=== PATIENT | female | born 1990 | race Caucasian/White ===

== ENCOUNTER 2016-08-01 13:45 | Emergency (ER) | payer BC, MEDICAID ==
[~2016-08-01] VITALS: Wt 90.0 kg
[~2016-08-01 13:45] MED LIST: ALBU8.5H5 IH; PRED20TA PO; TRAM50TA2 PO
--- NOTE | 2016-08-01 14:57 | EN ---
Date/Time of Note Date/Time of Note DATE: 08/01/16 TIME: 14:56 ER Progress Note Patient was seen and examined in E. Patient has hx of asthma, complains of SOB , difficulty breathing, chest tightedness and wheezing x 3 weeks, works in cooler at work. No relief with albuterol or breathing treatment at home. Will be sent to ED2 for breathing treatment and further evaluation. DMITRI ESPARZA PA-C Aug 01, 2016 14:57
[2016-08-01] MEDS ORDERED: DEXAMETHASONE 10 MG/ML 1 ML INJ IM ONE (15:30)
[2016-08-01] MEDS ORDERED: IPRATROPIUM (NEB) 0.5 MG/2.5 ML AMP HHN ONE (15:30)
[2016-08-01] MEDS ORDERED: ALBUTEROL 0.083% (NEB) 2.5 MG/3 ML AMP HHN ONE (15:30)
--- NOTE | 2016-08-01 16:10 | RADRPT ---
PROCEDURE: XR Chest. CLINICAL INDICATION: chest pain, asthma TECHNIQUE: Single frontal view of the chest was obtained COMPARISON: 09/30/09 FINDINGS: The heart and mediastinum are within normal limits. The lungs are clear. There is no pleural effusion or pneumothorax. RPTAT: AA IMPRESSION: No acute disease. .Jake Zayas MD, MD Date Time Electronically viewed and signed by .Jake Zayas MD, on 08/01/2016 16:09 .S/
[2016-08-01] MEDS ORDERED: ALBU8.5H3 INH (16:31)
[2016-08-01] MEDS ORDERED: PRED20TA PO (16:31)
[2016-08-01 17:16] VITALS: BP 122/72; PULSE 85; RESP 20; TEMP 98.3
--- NOTE | 2016-08-01 17:46 | ERD ---
DATE OF SERVICE: 08/01/2016 HISTORY OF PRESENT ILLNESS: The patient is a 26-year-old female complaining of coughing and wheezin g with shortness of breath for a few days. Patient states that she has a long history of asthma. S he has been using Albuterol with no alleviation of symptoms. She has had no fever. She has had a p roductive cough. She feels that her symptoms are intensified when she is at work. She is working i n the freezer. MEDICAL HISTORY: Asthma. ALLERGIES TO MEDICATIONS: DENIES. SURGICAL HISTORY: Ectopic . SOCIAL HISTORY: Denies. REVIEW OF SYSTEMS: A 12-point review of systems was done. Refer to HPI for positives, all other sy stems negative. PHYSICAL EXAMINATION: VITAL SIGNS: Temperature is 98.8, pulse 102, blood pressure is 148/82, respiratory rate 26, O2 sat 96% on room air. Pain intensity is 6/10. GENERAL: The patient is well-appearing, well-nourished, no acute distress. LUNGS: The patient has diffuse wheezing heard on auscultation with tight breath sounds. No focal r honchi, no stridor, no trismus or drooling. No tripoding. HEENT: Atraumatic. Conjunctivae are pink. Pupils equal, round, and reactive to light. There is no s cleral icterus. Tympanic membranes clear bilaterally. Oropharynx clear. No nystagmus or photophobia . NECK: C-spine is soft and supple. There is no meningismus. There is no cervical lymphadenopathy. No JVD. No bruits. No goiter. HEART: Regular rate and rhythm. No murmurs, clicks, rubs or gallops. No S3 or S4. SKIN: There is no apparent rash or petechia. The skin is warm and dry. EMERGENCY ROOM COURSE: The patient had a breathing treatment in the ER, continues breathing. The p atient's symptoms improved after breathing treatment, she also had a 1-view chest x-ray in the ER wh ich showed no acute disease. The patient was given IM injection of Decadron. DIAGNOSIS: Asthma exacerbation. MEDICAL DECISION MAKING: I have low suspicion for pneumonia, low suspicion for respiratory distress or hypoxia. Low suspicion for PE, low suspicion for pneumothorax. The patient's exams are within normal limits. Vital signs are stable and patient's symptoms dramatically improved with breathing t reatment. DISCHARGE: The patient is discharged stable. Patient given prescription for prednisone and albuter ol and told to follow up with primary care within 1 to 2 days for reevaluation. Patient was told if symptoms progress or worsen to return to the ER. All other questions answered at time of discharge . Discharge summary given at the time of departure. Patient understood and complied with plan. Dictated By: MACEY ROUSE for RACHAEL BLEVINS/TANA Conf#: [id number] DID#: [id number]
== END 2016-08-01 17:17 | disposition home or self-care (01) ==
LOC: FTE 13:45
DX: J45.901 Unspecified asthma with (acute) exacerbation (principal)
CPT/HCPCS: 71010; 94644; 96372; 99284; J1100

== ENCOUNTER 2017-09-23 16:59 | Emergency (ER) | END 2017-09-23 21:04 | disposition home or self-care (01) ==

== ENCOUNTER 2018-06-02 13:02 | Outpatient (CLI) | END 2018-06-02 16:06 | disposition home or self-care (01) ==

== ENCOUNTER 2018-06-04 11:31 | Outpatient (CLI) | END 2018-06-04 14:20 | disposition home or self-care (01) ==

== ENCOUNTER 2018-06-21 13:27 | Outpatient (CLI) | END 2018-06-21 16:45 | disposition home or self-care (01) ==

== ENCOUNTER 2018-07-14 11:49 | Outpatient (CLI) | payer OTHER ==
[~2018-07-14] VITALS: Ht 162.6 cm; Wt 115.0 kg
[~2018-07-14 11:49] MED LIST changes: +HYDR250V5 IM; -PRED20TA PO; +PREN1TAB71 PO; -TRAM50TA2 PO
[2018-07-14 12:47] VITALS: BP 109/68; PULSE 95; RESP 18; Ht 162.6 cm; Wt 115.0 kg
--- NOTE | 2018-07-14 14:59 | TRIAGE ---
OB Triage Datetime Report Generated by CPN: 07/14/2018 14:59 Datetime: 07/14/2018 12:42 Assessment Type: Triage Maternal Assessment Level of Consciousness: Fully Conscious DTR's/Clonus: DTRs 2+; No Clonus Headache: Occipital Blurred Vision: No Respiratory Effort: Unlabored; Regular Rhythm; Equal Expansion Breath Sounds, Left: Clear and Equal Breath Sounds, Right: Clear and Equal Nausea/Vomiting: Denies RUQ Epigastric Pain: Denies Lower Extremities Edema: Bilateral Lower Extremities Degree: 1+ Upper Extremities Edema: None Degree: None Facial Edema: None Fall Risk Assessment History of Falling: (0) No Secondary Diagnosis: (0) No Ambulatory Aid: (0) Bedrest/Nurse Assist IV Therapy: (0) No Gait: (0) Normal/Bedrest/Immobile Mental Status: (0) Oriented to Own Ability Fall Score: 0 Fall Risk Score Definition: No Risk: No action required Datetime: 07/14/2018 12:40 Labor Evaluation Monitor Mode: External Heart Rate Monitor Mode: External US Datetime: 07/14/2018 12:29 Time of Arrival: 07/14/2018 11:46 EGA: 38.2 Arrived By: Ambulatory Chief Complaint: PT SENT FROM CLINIC FOR EVAL. OF HBP Movement: Present Contractions: Denies/Absent Rupture of Membranes: Denies Vaginal Bleeding: None Vaginal Discharge: Denies Recent Sexual Intercouse: Denies Abdominal Trauma: Not Applicable Patient Complaints: None Time Provider Notified: 07/14/2018 14:30 Provider Notified: ESHAGHIAN Initial Plan: PIH PANEL/BPP/EFW Datetime: 06/21/2018 13:53 EGA: 35.0 Datetime: 06/21/2018 13:52 Fall Score: 0 Fall Risk Score Definition: No Risk: No action required Datetime: 06/04/2018 11:40 Fall Score: 0 Fall Risk Score Definition: No Risk: No action required Datetime: 06/02/2018 13:13 Fall Score: 0 Fall Risk Score Definition: No Risk: No action required Datetime: 06/02/2018 13:12 EGA: 32.4
--- NOTE | 2018-07-14 17:11 | PN ---
Triage Information Date/Time Reason for visit: Further management of elevated blood pressure in office Weeks of Gestation 38 weeks and 2 days /Para Diabetes: none Hypertention: none Additional information 28-year-old with single intrauterine at 38 weeks and 2 days with a TAMMY of 07/26/2018 seen in her primary OB office today and elevated blood pressure was noted. Patient was sent to triage for further management. She states good movement. She denies nausea, vomiting, shortness of breath, chest pain, headache, visual changes, vaginal bleeding or LOF. Objective Vital Signs Date Temp Pulse Resp B/P (MAP) Pulse Ox O2 O2 Flow FiO2 Time Delivery Rate 07/14/18 98.2 95 18 109/68 Room Air 12:47 (82) Heart Rate: 140's Contractions: >10 Minutes Apart Results/Medications Result Diagram: 07/14/18 1336 07/14/18 1336 Results 24 hrs Laboratory Tests Test 07/14/18 12:10 07/14/18 13:36 Urine Color YELLOW Urine Clarity SLIGHTLY CLOUDY A Urine pH 7.0 Urine Specific [place] 1.012 Urine Ketones NEGATIVE Urine Nitrite NEGATIVE Urine Bilirubin NEGATIVE Urine Urobilinogen NEGATIVE Urine Leukocyte Esterase 3+ H Urine Microscopic RBC 4 Urine Microscopic WBC 1 Urine Squamous Epithelial Cells FEW Urine Bacteria FEW A Urine Mucus FEW A Urine Hemoglobin NEGATIVE Urine Glucose NEGATIVE Urine Total Protein NEGATIVE White Blood Count 7.6 Red Blood Count 4.25 Hemoglobin 11.2 L Hematocrit 34.1 L Mean Corpuscular Volume 80.2 L Mean Corpuscular Hemoglobin 26.4 L Mean Corpuscular Hemoglobin Concent 32.8 Red Cell Distribution Width 13.6 Platelet Count 302 Mean Platelet Volume 9.9 Immature Granulocytes % 0.400 Neutrophils % 67.8 Lymphocytes % 22.5 Monocytes % 7.6 Eosinophils % 1.2 Basophils % 0.5 Nucleated Red Blood Cells % 0.0 Immature Granulocytes # 0.030 Neutrophils # 5.2 Lymphocytes # 1.7 Monocytes # 0.6 Eosinophils # 0.1 Basophils # 0.0 Nucleated Red Blood Cells # 0.0 Prothrombin Time 11.7 L Prothrombin Time Ratio 0.9 INR International Normalized Ratio 0.85 Activated Partial Thromboplast Time 24.7 Fibrinogen 597.0 #H Sodium Level 135 Potassium Level 4.1 Chloride Level 107 Carbon Dioxide Level 20 L Anion Gap 8 Blood Urea Nitrogen 7 Creatinine 0.47 Est Glomerular Filtrat Rate mL/min > 60 Glucose Level 136 Uric Acid 4.3 Calcium Level 9.3 Total Bilirubin 0.1 L Direct Bilirubin 0.00 Indirect Bilirubin 0.1 Aspartate Amino Transf (AST/SGOT) 26 Alanine Aminotransferase (ALT/SGPT) 25 Alkaline Phosphatase 185 H Total Protein 6.4 Albumin 3.4 Globulin 3.00 Albumin/Globulin Ratio 1.13 Imaging Results FINDINGS: Single intrauterine gestation. There is a cephalic presentation. Measurements were made in order to determine age. The results are as follows: BPD = 36 weeks 5 day(s) HC = 36 weeks 4 day(s) AC = 39 weeks 6 day(s) FL = 36 weeks 0 day(s) [place] (cm) = not measured Heart rate = 142 beats per minute The placenta is anterior. There is no evidence for an abruption or placenta previa. Ovaries are not visualized. IMPRESSION: Single intrauterine gestation of approximately 37 weeks 2 days by ultrasound criteria. [facility] estimated weight = 3439 g; 63 percentile for gestational age of 38 weeks 2 days. RPTAT: AADD .Ed Parrish MD, MD Date Time Electronically viewed and signed by .Ed Parrish MD, MD on 07/14/2018 12:38 Disposition: Discharge Assessment/Plan 28-year-old with single intrauterine at 38 weeks and 2 days had elevated blood pressure in office during visit. She was referred to triage for further evaluation. All blood pressure in triage were within normal limits, highest blood pressure was 109/68. CBC, C MP, urinalysis performed which all were within normal limits. heart rate category 1. FHR: No sign of metabolic acidosis- Category I. Discharged home in stable condition with follow-up with her primary OB in 1-2 days, strongly recommend to return to triage with any concern. Patient was discharged home in stable condition with the appropriate discharge instructions provided. ARCHIE BELTRAN Jul 14, 2018 17:11
== END 2018-07-14 15:15 | disposition home or self-care (01) ==
LOC: L-D 11:49 → OBT 11:49
PROVIDERS: ATTEND Obstetrics & Gynecology
DX: O13.3 Gestational [pregnancy-induced] hypertension without significant proteinuria, third trimester (principal); Z3A.38 38 weeks gestation of pregnancy
CPT/HCPCS: 76815; 76818; 80053; 81001; 84560; 85025; 85384; 85610; 85730; G0463

== ENCOUNTER 2018-07-19 08:00 | Inpatient (IN) | payer OTHER ==
[~2018-07-19] VITALS: Ht 162.6 cm; Wt 115.7 kg
[~2018-07-19 08:00] MED LIST changes: -ALBU8.5H5 IH; +EPHEDrine SULFATE 50 MG/5 ML SYG ONE; -HYDR250V5 IM; -PREN1TAB71 PO
[2018-07-19 08:39] VITALS: Ht 162.6 cm; Wt 115.7 kg
[2018-07-19] MEDS ORDERED: BUTORPHANOL 2 MG INJ IV PRN (09:00)
[2018-07-19] MEDS ORDERED: OXYTOCIN 30 UNITS/LR 500 ML IV SCH ×3 (09:00→16:10)
[2018-07-19] MEDS ORDERED: METHYLERGONOVINE 0.2 MG INJ IM PRN ×2 (09:00→16:30)
[2018-07-19] MEDS ORDERED: LIDOCAINE 1% (MPF) 30 ML INJ INJ PRN (09:00)
[2018-07-19] MEDS ORDERED: IBUPROFEN 600 MG TAB PO PRN (09:00)
[2018-07-19] MEDS ORDERED: CARBOPROST 250 MCG INJ IM PRN ×2 (09:00→16:30)
[2018-07-19] MEDS ORDERED: OXYCODONE/ASPIRIN (4.88/325) TAB PO PRN (09:00)
[2018-07-19] MEDS ORDERED: MISOPROSTOL 200 MCG TAB PR PRN ×2 (09:00→16:30)
[2018-07-19] MEDS ORDERED: OXYTOCIN 30 UNITS/LR 500 ML IV PRN ×2 (09:00→16:30)
--- NOTE | 2018-07-19 11:25 | PREOPHP ---
DATE OF ADMISSION: 07/19/2018 HISTORY OF PRESENT ILLNESS: Ms. Tiana Marroquin is a 28-year-old 7, para 1, EDC 07/26/2018, was admitted today for elective social induction. However, heart tracing currently with a cat egory 2 tracing/occasional variable decelerations. After explaining the risks, benefits and alternat marilu, the patient agreed for an elective delivery. PAST MEDICAL HISTORY: Obese, asthma. MEDICATIONS: 1. vitamins. 2. Albuterol inhaler as needed. PAST SURGICAL HISTORY: None. OBSTETRIC HISTORY: x1 vaginal delivery at approximately 34 weeks gestational age, 3 termination of p regnancy, x2 missed AB, x1 ectopic . GYNECOLOGIC HISTORY: 12, regular 3 to 4 days. Denies any sexually transmitted disease. Sexually ac tive with 1 partner. SOCIAL HISTORY: Denies any smoking, drugs or alcohol. FAMILY HISTORY: None. REVIEW OF SYSTEMS: All within normal except history of present illness. PHYSICAL EXAMINATION: HEENT: Within normal. LUNGS: CTA bilateral. CARDIOVASCULAR: S1, S2, regular rhythm. ABDOMEN: Gravid, nontender. Negative CVA bilateral. EXTREMITIES: Negative edema. No calf tenderness. PELVIC: Vaginal exam 150, -3 posterior. heart tracing category 2 in the 140s, [place]: no contr actions. ASSESSMENT: Intrauterine at 39 weeks gestational age, category 2 tracing remote from [facility], [place]. History of positive amphetamines. PLAN: For intrauterine resuscitation, consent for a primary . Risks, benefits and alternat marilu explained. All questions were answered. Dictated By: SHAHNAZ RIVERA/TANA Conf#: [id number] DID#: [id number] CC: SHAHNAZ MCRAE MD;*EndCC*
[2018-07-19] MEDS ORDERED: CEFAZOLIN 2 GM/50 ML (PMX) 50 ML IVPB SCH (12:00)
[2018-07-19] MEDS: LACTATED RINGER'S 1,000 ML IV SCH ×2 (13:06→16:40)
[2018-07-19] MEDS ORDERED: OXYTOCIN 30 UNITS/LR 500 ML IV ONE ×2 (15:00→16:02)
[2018-07-19] MEDS ORDERED: ONDANSETRON 4 MG INJ ONE (15:01)
[2018-07-19] MEDS ORDERED: KETOROLAC 30 MG INJ ONE (15:01)
[2018-07-19] MEDS ORDERED: morphine SULFATE/PF (10 MG/10 ML) INJ ONE (15:01)
[2018-07-19] MEDS ORDERED: METOCLOPRAMIDE 10 MG INJ ONE (15:01)
--- NOTE | 2018-07-19 16:10 | OPPN ---
Date/Time of Note Date/Time of Note DATE: 07/19/18 TIME: 16:07 Operative Report Planned Procedure Procedure date Jul 19, 2018 Procedure(s) primary low transverse CD Performed by see signature line Ceramics Test Engineer: AJ KHALIL M.D. 2nd Ceramics Test Engineer none Pre-procedure diagnosis Intrauterine at 39 weeks gestational age, category 2 tracing remote from delivery. History of positive amphetamines. [id number] Anesthesia Type: [id number] spinal Post-Procedure Post-procedure diagnosis same Findings a viable male 7/9. weight 8lb 13 oz. normal uterus and ovaries. right fallopian tubes not visualize. normal left fallopian tube Estimated Blood Loss: 500 - 600 mls Specimen(s) none Grafts/Implant(s) none Complication(s) none SHAHNAZ MCRAE MD Jul 19, 2018 16:10
[2018-07-19] MEDS ORDERED: LANOLIN HPA 1 PKT TOP PRN (16:30)
[2018-07-19] MEDS ORDERED: NALOXONE (0.4 MG/ML) INJ IV PRN (16:30)
[2018-07-19] MEDS ORDERED: NACL 0.9% 3 ML SYG IV SCH (16:30)
[2018-07-19] MEDS ORDERED: morphine 2 MG INJ IV PRN ×3 (16:30)
[2018-07-19] MEDS ORDERED: morphine (1 MG/ML) 10ML SYRINGE IV PRN ×3 (16:30)
[2018-07-19] MEDS ORDERED: KETOROLAC 30 MG INJ IV PRN (16:30)
[2018-07-19] MEDS ORDERED: DIPHENHYDRAMINE 50 MG INJ IV PRN ×2 (16:30)
[2018-07-19] MEDS ORDERED: ONDANSETRON 4 MG INJ IV PRN ×2 (16:30)
[2018-07-19] MEDS: IBUPROFEN 600 MG TAB PO SCH (18:00)
[2018-07-19 18:40] VITALS: BP 118/59; PULSE 91; RESP 18
[2018-07-19 19:45] VITALS: BP 113/66; PULSE 99; RESP 21
[2018-07-19] MEDS: CEFAZOLIN 2 GM/50 ML (PMX) 50 ML IVPB SCH (19:46)
[2018-07-19] MEDS: SENNA/DOCUSATE NA (8.6MG/50MG) TAB PO SCH (21:00)
[2018-07-20] MEDS: LACTATED RINGER'S 1,000 ML IV SCH ×2 (00:40→08:52)
[2018-07-20 01:00] VITALS: BP 120/68; PULSE 103; RESP 20
[2018-07-20] MEDS: CEFAZOLIN 2 GM/50 ML (PMX) 50 ML IVPB SCH ×2 (03:26→09:50)
[2018-07-20] MEDS: KETOROLAC 30 MG INJ IV PRN ×2 (03:28→08:07)
[2018-07-20 03:51] VITALS: BP 108/55; PULSE 94; RESP 18
--- NOTE | 2018-07-20 04:31 | NUR ---
EOSS: STABLE CONDITION. FUNDUS FORM, LOCHIA MINIMAL. ELIA CARE DONE. VITAL SIGNS WITHIN NORMAL LIMITS. WILL CONTINUE TO MONITOR.
[2018-07-20] MEDS: IBUPROFEN 600 MG TAB PO SCH ×5 (05:51→23:48)
[2018-07-20 08:10] VITALS: BP 107/59; PULSE 98; RESP 18
[2018-07-20 12:00] VITALS: BP 100/60; PULSE 96; RESP 18
--- NOTE | 2018-07-20 12:30 | OPR ---
DATE OF OPERATION: 07/19/2018 PRIMARY DIAGNOSES: Intrauterine at 39 weeks gestational age, category 2 tracing remote fro m delivery. POSTOPERATIVE DIAGNOSES: Intrauterine at 39 weeks gestational age, category 2 tracing russell te from delivery. PROCEDURE: Primary low transverse delivery. SURGEON: Tu Ibarra MD FUNDS TRANSFER CLERK: Panchito Lux MD ANESTHESIA: Spinal. COMPLICATIONS: None. ESTIMATED BLOOD LOSS: 500 mL. FINDINGS: A viable male, Apgars 7 and 9 respectively at 1 and 5 minutes, weight 8 pounds and 13 ounc es, x1 cord around the neck. The right fallopian tube is not identified. Normal right and left ovar ies. Normal left fallopian tube. Normal uterus. DESCRIPTION OF PROCEDURE: After explaining the risks, benefits and alternatives, the patient and con sent signed in chart, the patient was taken to the operating room where spinal anesthesia was found t o be adequate. She was then prepared and draped in normal sterile fashion in dorsal position with a leftward tilt. A Pfannenstiel skin incision was then made with a scalpel and carried to the underlyi ng fascia. The fascia was incised in the midline. Incision was extended laterally with Macdonald scissor s. The superior aspect of the fascial incision was grasped with curved clamps, elevated and the unde rlying rectus muscles dissected off bluntly. Attention was then turned to the inferior aspect of the incision which in similar fashion was grasped, tented up with curved clamps and the rectus muscles d issected off bluntly. The rectus muscles were in midline, peritoneum identified, tented up and sharply with Metzenbaum scissors. The peritoneal incision was extended superiorly with good vis ualization of bladder. The bladder blade was then inserted and the vesicouterine peritoneum identifi ed, grasped with pickups and sharply with Metzenbaum scissors. This incision was extended laterally and a bladder flap created digitally. The bladder blade was then reinserted and lower segment incise d in transverse fashion with a scalpel. The uterine incision was extended laterally. The bladder bl elijah was removed and the infant's head delivered atraumatically. The nose and mouth were suctioned, c ord clamped and cut. The infant was handed off to awaiting position. The placenta was then removed. The uterus was exteriorized and cleared of all clots and debris. The uterine incision was repaired with 1-0 chromic in a running locked fashion. A second layer of same suture was used for imbricatio n obtaining excellent hemostasis. The uterus was returned to the abdomen. The gutters were cleared of all clots. The peritoneum and rectus abdominis muscles were reapproximated with 3-0 Vicryl in int errupted fashion. The fascia was reapproximated with 0 Vicryl in a running fashion. The subcutaneou s tissue was reapproximated with 2-0 plain gut in a running fashion. The skin was closed with absorb able andreia. The patient tolerated procedure well. All counts were correct. The patient was taken to recovery room in stable condition. Dictated By: TU RIVERA/TANA Conf#: [id number] DID#: [id number]
[2018-07-20] MEDS: SENNA/DOCUSATE NA (8.6MG/50MG) TAB PO SCH ×2 (14:35→20:21)
[2018-07-20] MEDS: OXYCODONE/ACETAMINOPHEN (5/325) TAB PO PRN ×2 (14:36→20:20)
[2018-07-20 16:00] VITALS: BP 109/61; PULSE 95; RESP 18
--- NOTE | 2018-07-20 17:22 | NUR ---
EOSS: Vital signs stable, assisted out of bed and encouraged to ambulate around the room. Voided x1 without difficulty, fundus firm, lochia small. Bonding with baby.
[2018-07-20 20:00] VITALS: BP 107/67; PULSE 90; RESP 18
--- NOTE | 2018-07-20 20:47 | QN ---
Documentation Comment progress note pod 1 patient seen and evaluated no complaints vs stable afebrile ab dressing clean/dry no distention extremity no edema no calf tenderness a/ sp cd pod 1 stable afebrile p/ iron supplement encourage ambulation SHAHNAZ MCRAE MD Jul 20, 2018 20:47
[2018-07-20] MEDS: FERROUS SULFATE (EC) 325 MG TAB PO SCH (21:24)
[2018-07-21] MEDS: OXYCODONE/ACETAMINOPHEN (5/325) TAB PO PRN ×4 (02:34→19:12)
[2018-07-21 04:00] VITALS: BP 109/65; PULSE 86; RESP 16
--- NOTE | 2018-07-21 05:30 | NUR ---
EOSS: PATIENT IN STABLE CONDITION. BONDING WELL WITH . FEEDING FORMULA, MOTHER'S REQUEST, VIA BOTTLE. AMBULATING WELL AND VOIDING WELL. PASSING GAS, DUE TO BM. FUNDUS FIRM AT LEVEL OF UMBILICUS, WITH SMALL AMOUNT OF LOCHIA. PATIENT IS AFEBRILE. FOB AT BEDSIDE.
[2018-07-21] MEDS: IBUPROFEN 600 MG TAB PO SCH ×4 (06:26→23:52)
[2018-07-21] MEDS: LACTATED RINGER'S 1,000 ML IV SCH ×4 (06:27→14:18)
[2018-07-21 08:30] VITALS: BP 85/49; PULSE 87; RESP 19
[2018-07-21] MEDS: SENNA/DOCUSATE NA (8.6MG/50MG) TAB PO SCH ×2 (08:38→20:26)
[2018-07-21] MEDS: FERROUS SULFATE (EC) 325 MG TAB PO SCH ×2 (08:38→20:26)
--- NOTE | 2018-07-21 12:10 | OPPN ---
Date/Time of Note Date/Time of Note DATE: 07/20/18 TIME: 12:08 A 28 year female s/p spinal duramorph pod #1 ia doing fine , no pain, itching, N/V, headache. no neural deficit. YASMANI DESIR MD Jul 21, 2018 12:10
[2018-07-21 15:22] VITALS: BP 129/73; PULSE 66; RESP 18
--- NOTE | 2018-07-21 17:19 | NUR ---
EOSS VSS, BONDING WELL WITH . INCISION AND STERI STRIPS CLEAN DRY INTACT
--- NOTE | 2018-07-21 17:53 | PN ---
Date/Time of Note Date/Time of Note DATE: 07/21/18 TIME: 17:52 OB Subjective Subjective Subjective POD#2 Patient is doing well. She denies nausea, vomiting, shortness of breath, chest pain, headache. She has been ambulating without difficulty, tolerating regular diet. Pain is well controlled on current medications OB Objective Objective Objective VS - Last 72 Hours, by Label Date Temp Pulse Resp B/P (MAP) Pulse Ox O2 O2 Flow FiO2 Time Delivery Rate 07/21/18 98.0 66 18 129/73 Room Air 15:22 (91) 07/21/18 98.2 87 19 85/49 (61) Room Air 08:30 07/21/18 97.4 86 16 109/65 Room Air 04:00 (80) 07/20/18 97.5 90 18 107/67 Room Air 20:00 (80) 07/20/18 98.8 95 18 109/61 Room Air 16:00 (77) 07/20/18 99.0 96 18 100/60 96 12:00 (73) 07/20/18 100.0 98 18 107/59 98 Room Air 08:10 (75) 07/20/18 99.1 94 18 108/55 95 Room Air 03:51 (72) 07/20/18 99.0 103 20 120/68 95 Room Air 01:00 (85) 07/19/18 97.9 99 21 113/66 96 Room Air 19:45 (82) 07/19/18 97.8 91 18 118/59 96 Room Air 18:40 (78) General: AAO X 3, comfortable, NAD, appropriate mood and affect. ABD: +BS. Soft, non-tender. Uterus 2 cm below umbilicus Incision: Clear, dry, intact. No erythema, drainage or induration. Flank: No CVA tenderness (B/L) LE: Mild edema. No clubbing, cyanosis, thigh or calf tenderness (B/L). Homans 'sign is negative OB Assessment/Plan Other plan: 28-year-old s/p delivery POD#2 - AF, VSS - Baby is doing well, at bed side. She is bonding well - Contraception methods with R/B/A/FR discussed - Continue care ARCHIE BELTRAN Jul 21, 2018 17:53
[2018-07-21] MEDS ORDERED: PROAIR HFA INHALER INH PRN (19:30)
[2018-07-21 20:00] VITALS: BP 131/88; PULSE 99; RESP 18
[2018-07-22] MEDS: LACTATED RINGER'S 1,000 ML IV SCH (00:40)
[2018-07-22 04:00] VITALS: BP 103/57; PULSE 88; RESP 16
[2018-07-22] MEDS: OXYCODONE/ACETAMINOPHEN (5/325) TAB PO PRN ×2 (04:34→13:06)
[2018-07-22] MEDS: IBUPROFEN 600 MG TAB PO SCH ×3 (06:24→17:06)
--- NOTE | 2018-07-22 06:30 | NUR ---
EOSS: PATIENT IN STABLE CONDITION. AMBULATING WELL AND VOIDING. PASSING GAS, HAD BM. FUNDUS FIRM WITH SMALL AMOUNT OF LOCHIA. BONDING WELL WITH . FEEDING FORMULA VIA BOTTLE, MOTHER'S PREFERENCE. PATIENT IS AFEBRILE.
[2018-07-22 07:10] VITALS: BP 108/67; PULSE 92; RESP 18
[2018-07-22] MEDS: SENNA/DOCUSATE NA (8.6MG/50MG) TAB PO SCH (09:37)
[2018-07-22] MEDS: FERROUS SULFATE (EC) 325 MG TAB PO SCH (09:37)
[2018-07-22 16:14] VITALS: BP 133/74; PULSE 88; RESP 18
--- NOTE | 2018-07-22 17:03 | PD.PPDC ---
BEATER BOSS Discharge Instruction Condition Omvci6Cl Patient Condition: Hkkxw4x Fair Diet Jxcfc8Si Diet: Jaorv4u Resume Regular Diet Activity/Restrictions Ggurl1Pp Activity: Lxrge9f Normal Activity May Shower Iegwu3Gb Restrictions: Oxmnk8l No Exercising No Lifting No Driving No Sexual Activity Nothing in the Vagina No [place] No Tampons, douche Follow-up Follow-up with Physician: 2, Week/Weeks Return to clinic for Vccdm4Su PL SQL DEVELOPER Instructions: Uarks9z Fever greater than 101 Chills Worsening abdominal pain Excessive Vaginal Bleeding More than 2 pads per hour Unable to tolerate diet Zetpm4Vh OB Instructions: Hcsay8l Breast Tenderness Depression Blurried Vision Headache Fzdxx5Cf Surgical Instructions: Oodro4f Incisional Drainage Incisional Redness SHAHNAZ MCRAE MD Jul 22, 2018 17:03
--- NOTE | 2018-07-22 17:12 | DS ---
DATE OF ADMISSION: 07/19/2018 DATE OF DISCHARGE: 07/22/2018 PRIMARY DIAGNOSIS: Intrauterine at 39 weeks gestational age, category 2 tracing remote fro m delivery. PROCEDURE: Primary low transverse delivery. CONDITION ON DISCHARGE: Stable. ACTIVITY: None per vagina, no lifting x6 weeks. DIET: Regular. MEDICATIONS ON DISCHARGE: 1. Motrin. 2. Iron. 3. Colace. DISCHARGE SUMMARY: Ms. Tiana Marroquin underwent a primary low transverse delivery on 06/30. She had a viable male, 7 and 9 respectively at 1 and 5 minutes, weight 8 pounds 13 oun jelena, x1 cord around the neck was noted. She had an uneventful postop day 1, 2, and 3. Her incision is clean, dry and intact. She is ambulating, tolerating diet, positive flatulence, and positive radha l movement. She will follow up in the clinic in two weeks for /postop care. Dictated By: SHAHNAZ RIVERA/TANA Conf#: [id number] DID#: [id number]
--- NOTE | 2018-07-22 17:39 | NUR ---
DISCHARGE INST GIVEN TO PT AND SHE VERBALIZED UNDERSTANDING OF ALL INFO GIVEN AND ALL QUESTIONS ANSWERED. PT DC'D HOME IN STABLE COND WITH BABY VIA WHEELCHAIR. Addendum: 07/22/18 at 1740 by DAVINA GARCIA RN Amended: Links added.
== END 2018-07-22 18:00 | disposition home or self-care (01) | DRG 788 ==
LOC: L-D 08:14 → PP1 18:32
PROVIDERS: ADMIT Obstetrics & Gynecology; ATTEND Obstetrics & Gynecology
PROC: 10D00Z1 Extraction of Products of Conception, Low, Open Approach (ICD-10-PCS; principal; 2018-07-19 08:00)
DX: O76 Abnormality in fetal heart rate and rhythm complicating labor and delivery (principal); O69.81X0 Labor and delivery complicated by cord around neck, without compression, not applicable or unspecified; Z3A.39 39 weeks gestation of pregnancy; Z37.0 Single live birth
CPT/HCPCS: 76815; 80307; 85025; 85610; 85730; 86592; 86850; 86870; 86900; 86901; 87340; 99464; J0690; J1885; J2274; J2405; J2590; J2765; J7120

== ENCOUNTER 2019-01-10 16:14 | Emergency (ER) | payer OTHER ==
[~2019-01-10] VITALS: Ht 165.1 cm; Wt 95.6 kg
[2019-01-10 16:23] VITALS: Ht 165.1 cm; Wt 95.6 kg
[2019-01-10] MEDS ORDERED: ACETAMINOPHEN 500 MG TAB PO STA (18:58)
[2019-01-10] MEDS ORDERED: CIPROFLOXACIN 400MG/D5W 200 ML IVPB ONE (19:00)
[2019-01-10] MEDS ORDERED: SODIUM CHLORIDE 0.9% 1L BAG IV* ONE (19:00)
[2019-01-10] MEDS ORDERED: CIPR500T4 PO (20:25)
[2019-01-10] MEDS ORDERED: ACET325T33 PO (20:25)
[2019-01-10 20:51] VITALS: BP 118/63; PULSE 95; RESP 18
--- NOTE | 2019-01-11 02:01 | ERD ---
ER Documentation Chief Complaint Chief Complaint BACK PAIN X1 WEEK, NO INJURY, DARK URINE, NAUSEA HPI 28-year-old female presented to ED for back pain and dark urine x1 week. Patient presents with a temp of 102.3. She states that she gets frequent UTIs and had to be hospitalized for kidney infection several years ago. Patient de livered her child July 192018. Patient states she had no complications with a . Patient states her main symptoms are back pain and dysuria. She denies any allergies to medication. Patient does not take any current medications. Patient states the pain is a 7 out of 10 ROS All systems reviewed and are negative except as per history of present illness. Medications Home Meds Active Scripts Acetaminophen* (Tylenol*) 325 Mg Tablet, 1 TAB PO Q6 PRN for PAIN AND OR ELEVATED TEMP, #20 TAB Prov:DOMITILA GARG PA-C 01/10/19 Ciprofloxacin Hcl* (Ciprofloxacin Hcl*) 500 Mg Tablet, 500 MG PO BID for 7 Days, TAB Prov:DOMITILA GARG PA-C 01/10/19 Allergies Allergies: Coded Allergies: No Known Allergy (Verified , NONE, 10/20/11) PMhx/Soc History of Surgery: Yes (ectopic ) Anesthesia Reaction: No Hx Neurological Disorder: No Hx Respiratory Disorders: Yes (ASTHMA) Hx Cardiac Disorders: No Hx Psychiatric Problems: No Hx Miscellaneous Medical Probl: No Hx Alcohol Use: No Hx Substance Use: No Hx Tobacco Use: No Smoking Status: Never smoker FmHx Family History: No diabetes, No coronary disease, No other Physical Exam Vitals Vital Signs Date Temp Pulse Resp B/P (MAP) Pulse Ox O2 O2 Flow FiO2 Time Delivery Rate 01/10/19 98.1 95 18 118/63 95 Room Air 20:51 (81) 01/10/19 100.5 20:26 01/10/19 101.4 19:15 01/10/19 102.3 108 18 155/74 97 16:23 (101) Physical Exam Const: No acute distress Head: Atraumatic Eyes: Normal Conjunctiva ENT: Normal External Ears, Nose and Mouth. Neck: Full range of motion. No meningismus. Resp: Clear to auscultation bilaterally Cardio: Regular rate and rhythm, no murmurs Abd: Soft, non tender, non distended. Normal bowel sounds Skin: No petechiae or rashes Back: No midline or flank tenderness Ext: No cyanosis, or edema Neur: Awake and alert Psych: Normal Mood and Affect Result Diagram: 01/10/19191601/10/191916 Results 24 hrs Laboratory Tests Test 01/10/19 19:17 01/10/19 19:29 White Blood Count 9.9 10^3/ul Red Blood Count 5.39 10^6/ul Hemoglobin 13.5 g/dl Hematocrit 43.4 % Mean Corpuscular Volume 80.5 fl Mean Corpuscular Hemoglobin 25.0 pg Mean Corpuscular Hemoglobin Concent 31.1 g/dl Red Cell Distribution Width 14.3 % Platelet Count 299 10^3/UL Mean Platelet Volume 9.1 fl Immature Granulocytes % 0.300 % Neutrophils % 71.2 % Lymphocytes % 19.7 % Monocytes % 8.3 % Eosinophils % 0.2 % Basophils % 0.3 % Nucleated Red Blood Cells % 0.0 /100WBC Immature Granulocytes # 0.030 10^3/ul Neutrophils # 7.1 10^3/ul Lymphocytes # 2.0 10^3/ul Monocytes # 0.8 10^3/ul Eosinophils # 0.0 10^3/ul Basophils # 0.0 10^3/ul Nucleated Red Blood Cells # 0.0 10^3/ul Urine Color YELLOW Urine Clarity CLOUDY Urine pH 6.0 Urine Specific [place] 1.014 Urine Ketones NEGATIVE mg/dL Urine Nitrite POSITIVE mg/dL Urine Bilirubin NEGATIVE mg/dL Urine Urobilinogen 1+ mg/dL Urine Leukocyte Esterase 3+ Leandra/ul Urine Microscopic RBC 6 /HPF Urine Microscopic WBC 135 /HPF Urine Squamous Epithelial Cells MANY /HPF Urine Bacteria MODERATE /HPF Urine Hemoglobin 1+ mg/dL Urine Glucose NEGATIVE mg/dL Urine Total Protein NEGATIVE mg/dl Sodium Level 138 mmol/L Potassium Level 4.5 mmol/L Chloride Level 101 mmol/L Carbon Dioxide Level 28 mmol/L Anion Gap 9 Blood Urea Nitrogen 10 mg/dl Creatinine 0.75 mg/dl Est Glomerular Filtrat Rate mL/min > 60 mL/min Glucose Level 119 mg/dl Calcium Level 9.3 mg/dl Total Bilirubin 0.4 mg/dl Direct Bilirubin 0.00 mg/dl Indirect Bilirubin 0.4 mg/dl Aspartate Amino Transf (AST/SGOT) 78 IU/L Alanine Aminotransferase (ALT/SGPT) 88 IU/L Alkaline Phosphatase 149 IU/L Total Protein 7.6 g/dl Albumin 4.1 g/dl Globulin 3.50 g/dl Albumin/Globulin Ratio 1.17 POC Beta HCG, Qualitative NEGATIVE Current Medications Medications Dose Sig/Dianna Start Time Status Last (Trade) Ordered Route PRN Stop Time Admin Dose Reason Admin Sodium 1,920 ml ONCE ONCE 01/10/19 DC 01/10/19 Chloride IV* 19:00 19:16 (NS) 01/10/19 19:04 1,000 mg ONCE STAT 01/10/19 DC 01/10/19 Acetaminophen PO 18:58 19:15 (Tylenol 01/10/19 19:04 Tab) 200 ml @ ONCE ONCE 01/10/19 DC 01/10/19 Ciprofloxacin 200 mls/hr IVPB 19:00 19:15 / Dextrose 01/10/19 19:59 Procedures/MDM Medications given in ER: Cipro Normal saline Acetaminophen Patient tolerated medication well with no adverse reactions. Patient reported improvement in pain. Medical decision making: Patient is 28-year-old female presented to ED for back pain dysuria and dark urine x1 week. Patient states this happened before and she had to be treated for a kidney infection. Physical exam showed no CVA tenderness. Due to the patient's history of kidney infection I began IV antibiotics Cipro in the ED. And acetaminophen for fever. UA did indicate that the patient does have a UTI. On reevaluation the patient appears to be doing much better. The patient has good follow-up care and I feel comfortable with treating the patient outpatient for UTI. Patient's urine was negative patient tolerated medications without side effects. At this time I have low suspicion for pyelonephritis, s epsis, cauda equine syndrome, spinal fractures, epidural abscess, spinal metastases, osteomyelitis, aortic dissection, ruptured or leaking AA, DJD, sciatica, lumbar strain, muscle spasm, pyelonephritis or nephrolithiasis. Advised patient if symptoms worsen return to ER immediately. Otherwise follow- up primary care provider in 1 to 2 days regarding this visit. All questions were answered upon discharge patient is in agreement treatment plan Prescription for home: I have discussed with the patient proper use and common side effects to expert with the medication . I advised the patient/family to speak with the pharmacist dispensing the medication to be advised of any potential drug i nteractions with other medication or supplements they may be taking. Discharge: At this time, patient is stable for discharge and outpatient management. I have instructed the patient to follow-up with his\her primary care physician in 1 to 2 days. I have discussed with the patient the possibility of needing to see a specialist for further work-up and imaging studies if symptoms persist. I have instructed the patient to promptly return to the ER for any new or worsening symptoms including increased pain, fever, nausea, vomiting, weakness or LOC. The patient and\or family expressed understanding of and agreement with this plan. All questions were answered. Home care instructions were provided. Disclaimer: Inadvertent spelling and grammatical errors are likely due to EHR\dictation software use and do not reflect on the overall quality of patient care. Also, please note that the electronic time recorded on the note does not necessarily reflect the actual time of the patient encounter. Departure Diagnosis: Primary Impression: UTI (urinary tract infection) Urinary tract infection type: site unspecified Hematuria presence: without hematuria Qualified Codes: N39.0 - Urinary tract infection, site not specified Condition: Stable Patient Instructions: Understanding Urinary Tract Infections (UTIs) Referrals: [facility] YOU HAVE RECEIVED A MEDICAL SCREENING EXAM AND THE RESULTS INDICATE THAT YOU DO NOT HAVE A CONDITION THAT REQUIRES URGENT TREATMENT IN THE EMERGENCY DEPARTMENT. FURTHER EVALUATION AND TREATMENT OF YOUR CONDITION CAN WAIT UNTIL YOU ARE SEEN IN YOUR DOCTORS OFFICE WITHIN THE NEXT 1-2 DAYS. IT IS YOUR RESPONSIBILITY TO MAKE AN APPOINTMENT FOR FOLOW-UP CARE. IF YOU HAVE A PRIMARY DOCTOR --you should call your primary doctor and schedule an appointment IF YOU DO NOT HAVE A PRIMARY DOCTOR YOU CAN CALL OUR PHYSICIAN REFERRAL HOTLINE AT IF YOU CAN NOT AFFORD TO SEE A PHYSICIAN YOU CAN CHOSE FROM THE FOLLOWING [facility] [address] [facility] [address] [facility] [facility] [address] [facility] [address] [facility] [place] [address] [facility]. [facility]. [address] [facility]. [facility] YOU HAVE RECEIVED A MEDICAL SCREENING EXAM AND THE RESULTS INDICATE THAT YOU DO NOT HAVE A CONDITION THAT REQUIRES URGENT TREATMENT IN THE EMERGENCY DEPARTMENT. FURTHER EVALUATION AND TREATMENT OF YOUR CONDITION CAN WAIT UNTIL YOU ARE SEEN IN YOUR DOCTORS OFFICE WITHIN THE NEXT 1-2 DAYS. IT IS YOUR RESPONSIBILITY TO MAKE AN APPOINTMENT FOR FOLOW-UP CARE. IF YOU HAVE A PRIMARY DOCTOR --you should call your primary doctor and schedule and appointment IF YOU DO NOT HAVE A PRIMARY DOCTOR YOU CAN CALL OUR PHYSICIAN REFERRAL HOTLINE AT . IF YOU CAN NOT AFFORD TO SEE A PHYSICIAN YOU CAN CHOSE FROM THE FOLLOWING [facility] INSTITUTIONS: [facility] [address] [place] [address] [facility] [address] [place] [address] [facility] [address] [place] [address] Additional Instructions: Return to this facility in 2 DAYS for a follow-up exam.Return sooner if your condition worsens. DOMITILA GARG PA-C Jan 11, 2019 02:01
== END 2019-01-10 20:53 | disposition home or self-care (01) ==
LOC: FTE 16:14
DX: N39.0 Urinary tract infection, site not specified (principal); J45.909 Unspecified asthma, uncomplicated
CPT/HCPCS: 80053; 81001; 81025; 85025; J0744; J7030; 36415; 96365; 96366